=== PATIENT | male | born 1950 ===

== ENCOUNTER 2023-09-21 08:00 | Outpatient (CLI) | payer OTHER ==
[2023-09-21 20:19] LABS: BASOPHILS % (AUTO) 0.5 %; EOSINOPHILS % (AUTO) 3.2 %; HCT - HEMATOCRIT 30.7 % (42.0-52.0); LYMPHOCYTES % (AUTO) 24.9 %; MEAN CORPUSCULAR HEMOGLOBIN 26.4 pg (27.0-31.0); MEAN CORPUSCULAR HGB CONC 29.3 g/dL (32.0-36.0); MEAN PLATELET VOLUME 11.5 fL (7.4-11.4); MONOCYTES % (AUTO) 10.1 %; NEUTROPHILS % (AUTO) 51.8 %; PLT - PLATELET COUNT 192 10^3/uL (130-450); RED BLOOD COUNT 3.41 10^6/uL (4.70-6.10); RED CELL DISTRIBUTION WIDTH 17.4 % (12.0-15.0)
[2023-09-21 20:30] LABS: WHITE BLOOD COUNT 1.9 x10^3/uL (4.8-10.8)
[2023-09-21 20:31] LABS: ABNORMAL LYMPHS % (MANUAL) 0 %; BAND NEUTROPHILS % (MANUAL) 0 %
[2023-09-21 20:32] LABS: CALCIUM 8.5 mg/dL (8.5-10.3); CREATININE 0.5 mg/dL (0.6-1.3); CRP - C-REACTIVE PROTEIN 2.5 mg/dL (<0.5); POTASSIUM 3.4 mmol/L (3.5-4.5)
[2023-09-21 21:28] LABS: EOSINOPHILS # (MANUAL) 0.1 10^3/uL (0-0.7); LYMPHOCYTES # (MANUAL) 0.4 10^3/uL (1.5-3.5); LYMPHOCYTES % (MANUAL) 14 %; METAMYELOCYTES % (MANUAL) 4 %; MONOCYTES # (MANUAL) 0.2 10^3/uL (0.0-1.0); NEUTROPHILS # (MANUAL) 1.2 10^3/uL (1.5-6.6); REACTIVE LYMPHS % (MANUAL) 6 %
[2023-09-21 21:32] LABS: DIFFERENTIAL COMMENT MANUAL DIFFERENTIAL; PLATELET ESTIMATE, MANUAL NORMAL (130-450,000) (NORMAL); PLATELET MORPHOLOGY NORMAL APPEARANCE (NORMAL)
== END 2023-09-21 23:59 | disposition home or self-care (01) ==
LOC: LAB 08:00
PROVIDERS: ATTEND Allergy & Immunology
DX: R78.81 Bacteremia (principal)
CPT/HCPCS: 36415; 80048; 85025; 85651; 86140